=== PATIENT | male | born 1960 | race Caucasian/White ===

== ENCOUNTER 2018-05-12 10:06 | Inpatient (IN) | payer OTHER, MEDICAID ==
[2018-05-12] MEDS ORDERED: MEPERIDINE 50 MG INJ IV (12:00)
[2018-05-12] MEDS ORDERED: METHYLPREDNISOLONE 125 MG INJ IV (12:00)
[2018-05-12] MEDS ORDERED: DIPHENHYDRAMINE 50 MG INJ IV (12:00)
[2018-05-12 13:23] LABS: ADD MAN DIFF? NO
[2018-05-12 13:26] LABS: BASOPHILS % 0.6 % (0.0-2.0); EOSINOPHILS # 0.1 10^3/ul (0.0-0.5); EOSINOPHILS % 1.2 % (0.0-7.0); HEMOGLOBIN 7.5 g/dl (14.0-18.0); LYMPHOCYTES # 0.8 10^3/ul (0.8-2.9); LYMPHOCYTES % 16.8 % (15.0-51.0); MEAN CORPUSCULAR HGB CONC 31.3 g/dl (32.0-37.0); MEAN CORPUSCULAR VOLUME 92.7 fl (82.0-101.0); MEAN PLATELET VOLUME 9.8 fl (7.4-10.4); MONOCYTE # 0.5 10^3/ul (0.3-0.9); MONOCYTES % 10.5 % (0.0-11.0); NEUTROPHIL # 3.4 10^3/ul (1.6-7.5); NEUTROPHILS % 70.1 % (39.0-77.0); PLATELET COUNT 315 10^3/UL (140-415); RED BLOOD COUNT 2.59 10^6/ul (4.70-6.10); RED CELL DISTRIBUTION WIDTH 19.1 % (11.5-14.5)
[2018-05-12 13:26] LABS: WHITE BLOOD COUNT 4.9 10^3/ul (4.8-10.8)
[2018-05-12 13:49] LABS: ALANINE AMINOTRANSFERASE 22 IU/L (13-69); ALBUMIN 3.3 g/dl (3.3-4.9); ALBUMIN/GLOBULIN RATIO 1.65; ALKALINE PHOSPHATASE 118 IU/L (42-121); ANION GAP 11 (5-13); ASPARTATE AMINO TRANSFERASE 22 IU/L (15-46); BILIRUBIN,INDIRECT 0.2 mg/dl (0-1.1); BILIRUBIN,TOTAL 0.2 mg/dl (0.2-1.3); BLOOD UREA NITROGEN 14 mg/dl (7-20); CALCIUM 8.5 mg/dl (8.4-10.2); CARBON DIOXIDE 28 mmol/L (21-31); CHLORIDE 100 mmol/L (97-110); CREATININE 0.53 mg/dl (0.61-1.24); Estimated GFR > 60 mL/min (>60); GLUCOSE 88 mg/dl (70-220); POTASSIUM 4.2 mmol/L (3.5-5.1); SODIUM 139 mmol/L (135-144); TOTAL PROTEIN 5.3 g/dl (6.1-8.1); URIC ACID 4.5 mg/dl (3.1-7.9)
[2018-05-12 13:49] LABS: LACTATE DEHYDROGENASE 1661 IU/L (313-618)
[2018-05-12] MEDS ORDERED: GLUCAGON 1 MG INJ IM (14:30)
[2018-05-12] MEDS ORDERED: DEXTROSE 50% 50 ML SYRINGE IV ×2 (14:30)
[2018-05-12] MEDS ORDERED: GLUCOSE GEL 15 GRAM TUBE PO ×2 (14:30)
[2018-05-12] MEDS ORDERED: GLUCOSE GEL 15 GRAM TUBE BUCCAL (14:30)
[2018-05-12] MEDS: SOD CHLORIDE 0.9% 1,000 ML IV ×2 (14:37→22:34)
[2018-05-12] MEDS: ONDANSETRON INJ 16 MG, DEXAMETHASONE 4 MG/ML 10 MG in SOD CHLORIDE 0.9% 50 ML IV (17:48)
[2018-05-12] MEDS: metFORMIN 500 MG TAB PO ×2 (17:55→18:13)
[2018-05-12] MEDS: ACCU-CHEK XX ×2 (18:07→21:00)
[2018-05-12] MEDS: DIPHENHYDRAMINE 50 MG INJ IV (18:12)
[2018-05-12] MEDS: RITUXIMAB IV (18:24)
[2018-05-12] MEDS: SOD CHLORIDE 0.9% IV (18:24)
[2018-05-12] MEDS: ATORVASTATIN 20 MG TAB PO (20:42)
[2018-05-12] MEDS: TAMSULOSIN (SR) 0.4 MG CAP PO (20:42)
[2018-05-12] MEDS: INSULIN ASPART [NOVOLOG] 3 ML PEN SC (22:38)
[2018-05-13] MEDS: ACCU-CHEK XX (02:08)
[2018-05-13] MEDS: DIPHENHYDRAMINE 50 MG INJ IV ×2 (02:38→16:46)
[2018-05-13] MEDS: ACETAMINOPHEN 325 MG TAB PO (02:38)
[2018-05-13] MEDS: SOD CHLORIDE 0.9% 250 ML IV* (02:39)
[2018-05-13 02:48] LABS: IMMEDIATE SPIN CROSSMATCH 1 2
[2018-05-13] MEDS: predniSONE 50 MG TAB PO ×2 (08:28→21:33)
[2018-05-13] MEDS: INSULIN ASPART [NOVOLOG] 3 ML PEN SC ×4 (08:29→21:31)
[2018-05-13] MEDS: SOD CHLORIDE 0.9% IT (09:00)
[2018-05-13] MEDS: HYDROCORTISONE IT (09:00)
[2018-05-13] MEDS: METHOTREXATE IT (09:00)
[2018-05-13] MEDS: LIDOCAINE 1% (MPF) 5 ML VIAL (09:33)
[2018-05-13] MEDS: SOD CHLORIDE 0.9% 1,000 ML IV ×3 (10:43→21:35)
[2018-05-13 15:34] LABS: ADD MAN DIFF? NO
[2018-05-13 15:36] LABS: WHITE BLOOD COUNT 9.2 10^3/ul (4.8-10.8)
[2018-05-13 15:36] LABS: ABNORMAL IP MESSAGE 1; HEMATOCRIT 34.7 % (42.0-52.0); HEMOGLOBIN 11.3 g/dl (14.0-18.0); LYMPHOCYTES # 0.3 10^3/ul (0.8-2.9); MEAN CORPUSCULAR HGB CONC 32.6 g/dl (32.0-37.0); MEAN PLATELET VOLUME 9.5 fl (7.4-10.4); MONOCYTE # 0.1 10^3/ul (0.3-0.9); MONOCYTES % 1.1 % (0.0-11.0); NEUTROPHIL # 8.8 10^3/ul (1.6-7.5); NEUTROPHILS % 95.5 % (39.0-77.0); PLATELET COUNT 354 10^3/UL (140-415); POSITIVE DIFF @See below; RED CELL DISTRIBUTION WIDTH 17.2 % (11.5-14.5)
[2018-05-13 16:00] LABS: HEMOGLOBIN A1C 6.1 % (0-5.9)
[2018-05-13] MEDS ORDERED: predniSONE 50 MG TAB PO (16:00)
[2018-05-13] MEDS: ONDANSETRON INJ 16 MG, DEXAMETHASONE 4 MG/ML 10 MG in SOD CHLORIDE 0.9% 50 ML IV (16:46)
[2018-05-13] MEDS: SOD CHLORIDE IV (17:27)
[2018-05-13] MEDS: DOXORUBICIN IV (17:27)
[2018-05-13] MEDS: ETOPOSIDE IV (17:27)
[2018-05-13] MEDS: VINCRISTINE IV (17:27)
[2018-05-13] MEDS: TAMSULOSIN (SR) 0.4 MG CAP PO (21:28)
[2018-05-13] MEDS: ATORVASTATIN 20 MG TAB PO (21:28)
[2018-05-14] MEDS: ACCU-CHEK XX (02:50)
[2018-05-14 05:15] LABS: ADD MAN DIFF? NO
[2018-05-14 05:21] LABS: WHITE BLOOD COUNT 8.3 10^3/ul (4.8-10.8)
[2018-05-14 05:21] LABS: ABNORMAL IP MESSAGE 1; BASOPHILS % 0.1 % (0.0-2.0); HEMATOCRIT 32.3 % (42.0-52.0); HEMOGLOBIN 10.8 g/dl (14.0-18.0); LYMPHOCYTES # 0.3 10^3/ul (0.8-2.9); LYMPHOCYTES % 3.6 % (15.0-51.0); MEAN CORPUSCULAR HGB CONC 33.4 g/dl (32.0-37.0); MEAN CORPUSCULAR VOLUME 86.8 fl (82.0-101.0); MEAN PLATELET VOLUME 10.1 fl (7.4-10.4); MONOCYTE # 0.1 10^3/ul (0.3-0.9); MONOCYTES % 1.6 % (0.0-11.0); NEUTROPHIL # 7.8 10^3/ul (1.6-7.5); NEUTROPHILS % 94.1 % (39.0-77.0); PLATELET COUNT 339 10^3/UL (140-415); POSITIVE DIFF @See below; RED BLOOD COUNT 3.72 10^6/ul (4.70-6.10); RED CELL DISTRIBUTION WIDTH 17.1 % (11.5-14.5)
[2018-05-14 05:46] LABS: ALANINE AMINOTRANSFERASE 19 IU/L (13-69); ALBUMIN 3.2 g/dl (3.3-4.9); ALBUMIN/GLOBULIN RATIO 1.52; ALKALINE PHOSPHATASE 114 IU/L (42-121); ANION GAP 9 (5-13); ASPARTATE AMINO TRANSFERASE 17 IU/L (15-46); BILIRUBIN,INDIRECT 0.4 mg/dl (0-1.1); BILIRUBIN,TOTAL 0.4 mg/dl (0.2-1.3); BLOOD UREA NITROGEN 12 mg/dl (7-20); CALCIUM 8.5 mg/dl (8.4-10.2); CARBON DIOXIDE 27 mmol/L (21-31); CHLORIDE 103 mmol/L (97-110); CREATININE 0.44 mg/dl (0.61-1.24); Estimated GFR > 60 mL/min (>60); GLUCOSE 235 mg/dl (70-220); LACTATE DEHYDROGENASE 1953 IU/L (313-618); POTASSIUM 3.5 mmol/L (3.5-5.1); SODIUM 139 mmol/L (135-144); TOTAL PROTEIN 5.3 g/dl (6.1-8.1); URIC ACID 3.2 mg/dl (3.1-7.9)
[2018-05-14 06:06] LABS: CHOLESTEROL 132 mg/dl (100-200)
[2018-05-14 06:06] LABS: CHOL/HDL RATIO 2.1 RATIO; HDL CHOLESTEROL 62 mg/dl (28-71); LDL CHOLESTEROL,CALCULATED 59 mg/dl; TRIGLYCERIDES 54 mg/dl (0-149)
[2018-05-14 06:21] LABS: T4 (THYROXINE) 7.1 ug/dl (5.5-11.0)
[2018-05-14 06:34] LABS: THYROID STIMULATING HORMONE 0.329 MIU/L (0.465-4.680)
[2018-05-14] MEDS: SOD CHLORIDE 0.9% 1,000 ML IV ×2 (06:51→16:59)
[2018-05-14] MEDS: predniSONE 50 MG TAB PO ×2 (08:32→20:42)
[2018-05-14] MEDS: INSULIN ASPART [NOVOLOG] 3 ML PEN SC ×4 (08:33→20:48)
[2018-05-14] MEDS ORDERED: hydrALAzine 20 MG INJ IV (11:30)
[2018-05-14] MEDS: DIPHENHYDRAMINE 50 MG INJ IV (18:34)
[2018-05-14] MEDS: ONDANSETRON INJ 16 MG, DEXAMETHASONE 4 MG/ML 10 MG in SOD CHLORIDE 0.9% 50 ML IV (18:35)
[2018-05-14] MEDS: VINCRISTINE IV (19:07)
[2018-05-14] MEDS: SOD CHLORIDE IV (19:07)
[2018-05-14] MEDS: ETOPOSIDE IV (19:07)
[2018-05-14] MEDS: DOXORUBICIN IV (19:07)
[2018-05-14] MEDS: ATORVASTATIN 20 MG TAB PO (20:42)
[2018-05-14] MEDS: TAMSULOSIN (SR) 0.4 MG CAP PO (20:42)
[2018-05-15] MEDS: ACCU-CHEK XX (01:34)
[2018-05-15] MEDS: SOD CHLORIDE 0.9% 1,000 ML IV ×2 (02:06→14:10)
[2018-05-15 05:07] LABS: ADD MAN DIFF? NO
[2018-05-15 05:14] LABS: ABNORMAL IP MESSAGE 1; HEMATOCRIT 33.3 % (42.0-52.0); HEMOGLOBIN 11.1 g/dl (14.0-18.0); LYMPHOCYTES # 0.2 10^3/ul (0.8-2.9); LYMPHOCYTES % 2.5 % (15.0-51.0); MEAN CORPUSCULAR HEMOGLOBIN 29.3 pg (29.0-33.0); MEAN CORPUSCULAR HGB CONC 33.3 g/dl (32.0-37.0); MEAN CORPUSCULAR VOLUME 87.9 fl (82.0-101.0); MEAN PLATELET VOLUME 9.9 fl (7.4-10.4); MONOCYTE # 0.2 10^3/ul (0.3-0.9); MONOCYTES % 2.6 % (0.0-11.0); NEUTROPHIL # 8.6 10^3/ul (1.6-7.5); NEUTROPHILS % 94.2 % (39.0-77.0); PLATELET COUNT 348 10^3/UL (140-415); POSITIVE DIFF @See below; RED BLOOD COUNT 3.79 10^6/ul (4.70-6.10); RED CELL DISTRIBUTION WIDTH 16.9 % (11.5-14.5)
[2018-05-15 05:14] LABS: WHITE BLOOD COUNT 9.1 10^3/ul (4.8-10.8)
[2018-05-15 05:32] LABS: ALANINE AMINOTRANSFERASE 23 IU/L (13-69); ALBUMIN 3.2 g/dl (3.3-4.9); ALBUMIN/GLOBULIN RATIO 1.23; ALKALINE PHOSPHATASE 111 IU/L (42-121); ANION GAP 9 (5-13); ASPARTATE AMINO TRANSFERASE 18 IU/L (15-46); BILIRUBIN,INDIRECT 0.6 mg/dl (0-1.1); BILIRUBIN,TOTAL 0.6 mg/dl (0.2-1.3); BLOOD UREA NITROGEN 13 mg/dl (7-20); CALCIUM 8.5 mg/dl (8.4-10.2); CARBON DIOXIDE 29 mmol/L (21-31); CHLORIDE 99 mmol/L (97-110); CREATININE 0.42 mg/dl (0.61-1.24); Estimated GFR > 60 mL/min (>60); GLUCOSE 242 mg/dl (70-220); LACTATE DEHYDROGENASE 1849 IU/L (313-618); POTASSIUM 3.3 mmol/L (3.5-5.1); SODIUM 137 mmol/L (135-144); TOTAL PROTEIN 5.8 g/dl (6.1-8.1); URIC ACID 3.6 mg/dl (3.1-7.9)
[2018-05-15] MEDS: predniSONE 50 MG TAB PO ×2 (08:23→20:10)
[2018-05-15] MEDS: INSULIN ASPART [NOVOLOG] 3 ML PEN SC ×5 (08:24→22:07)
[2018-05-15] MEDS: POTASSIUM CHLORIDE (SR) 20 MEQ TAB PO (13:56)
[2018-05-15] MEDS: TAMSULOSIN (SR) 0.4 MG CAP PO (20:09)
[2018-05-15] MEDS: ATORVASTATIN 20 MG TAB PO (20:09)
[2018-05-15] MEDS: ONDANSETRON INJ 16 MG, DEXAMETHASONE 4 MG/ML 10 MG in SOD CHLORIDE 0.9% 50 ML IV (20:43)
[2018-05-15] MEDS: DIPHENHYDRAMINE 50 MG INJ IV (20:43)
[2018-05-15] MEDS: DOXORUBICIN IV (21:24)
[2018-05-15] MEDS: SOD CHLORIDE IV (21:24)
[2018-05-15] MEDS: VINCRISTINE IV (21:24)
[2018-05-15] MEDS: ETOPOSIDE IV (21:24)
[2018-05-15] MEDS: INSULIN GLARGINE [LANTus] (100 UNITS/ML) SYG SC (21:56)
[2018-05-16] MEDS: ACCU-CHEK XX (02:00)
[2018-05-16 05:10] LABS: ADD MAN DIFF? NO
[2018-05-16 05:13] LABS: ABNORMAL IP MESSAGE 1; HEMATOCRIT 33.7 % (42.0-52.0); HEMOGLOBIN 11.3 g/dl (14.0-18.0); LYMPHOCYTES # 0.2 10^3/ul (0.8-2.9); LYMPHOCYTES % 3.7 % (15.0-51.0); MEAN CORPUSCULAR HEMOGLOBIN 28.8 pg (29.0-33.0); MEAN CORPUSCULAR HGB CONC 33.5 g/dl (32.0-37.0); MEAN PLATELET VOLUME 9.8 fl (7.4-10.4); MONOCYTE # 0.1 10^3/ul (0.3-0.9); MONOCYTES % 2.1 % (0.0-11.0); NEUTROPHIL # 5.8 10^3/ul (1.6-7.5); PLATELET COUNT 343 10^3/UL (140-415); POSITIVE DIFF @See below; RED BLOOD COUNT 3.92 10^6/ul (4.70-6.10)
[2018-05-16 05:13] LABS: WHITE BLOOD COUNT 6.2 10^3/ul (4.8-10.8)
[2018-05-16 05:22] LABS: NEUTROPHILS % 93.7 % (39.0-77.0)
[2018-05-16 05:33] LABS: ALANINE AMINOTRANSFERASE 28 IU/L (13-69); ALBUMIN 3.2 g/dl (3.3-4.9); ALBUMIN/GLOBULIN RATIO 1.52; ALKALINE PHOSPHATASE 94 IU/L (42-121); ANION GAP 7 (5-13); ASPARTATE AMINO TRANSFERASE 18 IU/L (15-46); BILIRUBIN,INDIRECT 0.6 mg/dl (0-1.1); BILIRUBIN,TOTAL 0.6 mg/dl (0.2-1.3); BLOOD UREA NITROGEN 14 mg/dl (7-20); CALCIUM 8.4 mg/dl (8.4-10.2); CARBON DIOXIDE 31 mmol/L (21-31); CHLORIDE 101 mmol/L (97-110); CREATININE 0.42 mg/dl (0.61-1.24); Estimated GFR > 60 mL/min (>60); GLUCOSE 191 mg/dl (70-220); LACTATE DEHYDROGENASE 1605 IU/L (313-618); POTASSIUM 3.4 mmol/L (3.5-5.1); SODIUM 139 mmol/L (135-144); TOTAL PROTEIN 5.3 g/dl (6.1-8.1); URIC ACID 3.5 mg/dl (3.1-7.9)
[2018-05-16] MEDS: SOD CHLORIDE 0.9% 1,000 ML IV ×2 (06:23→16:52)
[2018-05-16] MEDS: INSULIN ASPART [NOVOLOG] 3 ML PEN SC ×7 (08:55→21:00)
[2018-05-16] MEDS: predniSONE 50 MG TAB PO ×2 (08:55→20:57)
[2018-05-16] MEDS: POTASSIUM CHLORIDE 100 ML IVPB ×2 (13:00→14:17)
[2018-05-16] MEDS: POTASSIUM CHLORIDE (SR) 20 MEQ TAB PO (14:42)
[2018-05-16] MEDS: TAMSULOSIN (SR) 0.4 MG CAP PO (20:56)
[2018-05-16] MEDS: ATORVASTATIN 20 MG TAB PO (20:57)
[2018-05-16] MEDS: INSULIN GLARGINE [LANTus] (100 UNITS/ML) SYG SC (20:59)
[2018-05-16] MEDS: ONDANSETRON INJ 16 MG, DEXAMETHASONE 4 MG/ML 10 MG in SOD CHLORIDE 0.9% 50 ML IV (21:35)
[2018-05-16] MEDS: DIPHENHYDRAMINE 50 MG INJ IV (21:37)
[2018-05-16] MEDS: DOXORUBICIN IV (22:12)
[2018-05-16] MEDS: VINCRISTINE IV (22:12)
[2018-05-16] MEDS: SOD CHLORIDE IV (22:12)
[2018-05-16] MEDS: ETOPOSIDE IV (22:12)
[2018-05-17] MEDS: ACCU-CHEK XX (02:55)
[2018-05-17] MEDS: SOD CHLORIDE 0.9% 1,000 ML IV ×3 (03:06→22:54)
[2018-05-17 05:34] LABS: ADD MAN DIFF? NO
[2018-05-17 05:37] LABS: WHITE BLOOD COUNT 4.8 10^3/ul (4.8-10.8)
[2018-05-17 05:37] LABS: ABNORMAL IP MESSAGE 1; HEMATOCRIT 32.6 % (42.0-52.0); HEMOGLOBIN 11.2 g/dl (14.0-18.0); LYMPHOCYTES # 0.2 10^3/ul (0.8-2.9); LYMPHOCYTES % 4.4 % (15.0-51.0); MEAN CORPUSCULAR HEMOGLOBIN 29.1 pg (29.0-33.0); MEAN CORPUSCULAR HGB CONC 34.4 g/dl (32.0-37.0); MEAN CORPUSCULAR VOLUME 84.7 fl (82.0-101.0); MEAN PLATELET VOLUME 9.6 fl (7.4-10.4); MONOCYTE # 0.1 10^3/ul (0.3-0.9); NEUTROPHIL # 4.5 10^3/ul (1.6-7.5); NEUTROPHILS % 94.4 % (39.0-77.0); PLATELET COUNT 325 10^3/UL (140-415); POSITIVE DIFF @See below; RED BLOOD COUNT 3.85 10^6/ul (4.70-6.10); RED CELL DISTRIBUTION WIDTH 16.1 % (11.5-14.5)
[2018-05-17 06:32] LABS: ALANINE AMINOTRANSFERASE 16 IU/L (13-69); ALBUMIN 2.9 g/dl (3.3-4.9); ALKALINE PHOSPHATASE 87 IU/L (42-121); ANION GAP 7 (5-13); ASPARTATE AMINO TRANSFERASE 17 IU/L (15-46); BLOOD UREA NITROGEN 15 mg/dl (7-20); CALCIUM 8.5 mg/dl (8.4-10.2); CARBON DIOXIDE 29 mmol/L (21-31); CHLORIDE 101 mmol/L (97-110); CREATININE 0.39 mg/dl (0.61-1.24); Estimated GFR > 60 mL/min (>60); GLUCOSE 167 mg/dl (70-220); LACTATE DEHYDROGENASE 1589 IU/L (313-618); POTASSIUM 3.7 mmol/L (3.5-5.1); SODIUM 137 mmol/L (135-144); TOTAL PROTEIN 5.3 g/dl (6.1-8.1); URIC ACID 3.3 mg/dl (3.1-7.9)
[2018-05-17] MEDS: INSULIN ASPART [NOVOLOG] 3 ML PEN SC ×7 (07:50→21:09)
[2018-05-17] MEDS: predniSONE 50 MG TAB PO ×2 (08:34→21:07)
[2018-05-17] MEDS: TAMSULOSIN (SR) 0.4 MG CAP PO (21:06)
[2018-05-17] MEDS: ATORVASTATIN 20 MG TAB PO (21:06)
[2018-05-17] MEDS: INSULIN GLARGINE [LANTus] (100 UNITS/ML) SYG SC (21:08)
[2018-05-17] MEDS: ONDANSETRON INJ 16 MG, DEXAMETHASONE 4 MG/ML 10 MG in SOD CHLORIDE 0.9% 50 ML IV (23:01)
[2018-05-17] MEDS: CYCLOPHOSPHAMIDE IV (23:25)
[2018-05-17] MEDS: SOD CHLORIDE 0.9% IV (23:25)
[2018-05-17] MEDS: MAGNESIUM HYDROXIDE 30ML CUP PO (23:49)
[2018-05-17] MEDS: SENNA TAB PO (23:49)
[2018-05-18] MEDS: ACCU-CHEK XX (02:01)
[2018-05-18 05:05] LABS: ADD MAN DIFF? NO
[2018-05-18 05:09] LABS: WHITE BLOOD COUNT 4.2 10^3/ul (4.8-10.8)
[2018-05-18 05:09] LABS: ABNORMAL IP MESSAGE 1; HEMATOCRIT 30.8 % (42.0-52.0); HEMOGLOBIN 10.8 g/dl (14.0-18.0); LYMPHOCYTES # 0.2 10^3/ul (0.8-2.9); MEAN CORPUSCULAR HEMOGLOBIN 29.5 pg (29.0-33.0); MEAN CORPUSCULAR HGB CONC 35.1 g/dl (32.0-37.0); MEAN CORPUSCULAR VOLUME 84.2 fl (82.0-101.0); MEAN PLATELET VOLUME 9.5 fl (7.4-10.4); MONOCYTES % 0.7 % (0.0-11.0); NEUTROPHILS % 94.1 % (39.0-77.0); PLATELET COUNT 289 10^3/UL (140-415); POSITIVE DIFF @See below; RED BLOOD COUNT 3.66 10^6/ul (4.70-6.10); RED CELL DISTRIBUTION WIDTH 15.7 % (11.5-14.5)
[2018-05-18 05:42] LABS: ALANINE AMINOTRANSFERASE 23 IU/L (13-69); ALBUMIN 2.9 g/dl (3.3-4.9); ALBUMIN/GLOBULIN RATIO 1.61; ALKALINE PHOSPHATASE 83 IU/L (42-121); ANION GAP 9 (5-13); ASPARTATE AMINO TRANSFERASE 19 IU/L (15-46); BLOOD UREA NITROGEN 16 mg/dl (7-20); CALCIUM 8.4 mg/dl (8.4-10.2); CARBON DIOXIDE 29 mmol/L (21-31); CHLORIDE 95 mmol/L (97-110); CREATININE 0.38 mg/dl (0.61-1.24); Estimated GFR > 60 mL/min (>60); GLUCOSE 127 mg/dl (70-220); LACTATE DEHYDROGENASE 1830 IU/L (313-618); POTASSIUM 3.3 mmol/L (3.5-5.1); SODIUM 133 mmol/L (135-144); TOTAL PROTEIN 4.7 g/dl (6.1-8.1); URIC ACID 2.6 mg/dl (3.1-7.9)
[2018-05-18] MEDS: INSULIN ASPART [NOVOLOG] 3 ML PEN SC ×4 (07:50→12:47)
[2018-05-18] MEDS: SENNA TAB PO (08:51)
[2018-05-18] MEDS: MAGNESIUM HYDROXIDE 30ML CUP PO (08:52)
[2018-05-18] MEDS: POTASSIUM CHLORIDE 20 MEQ POWDER FOR ORAL SOLN PO (09:56)
[2018-05-18] MEDS: SOD CHLORIDE 0.9% 1,000 ML IV (09:56)
[2018-05-18] MEDS: FILGRASTIM 480 MCG INJ SC (12:21)
[2018-05-18] MEDS: HEPARIN (100 UNITS/ML) 5 ML SYG CATHETER (12:39)
== END 2018-05-18 13:45 | disposition home or self-care (01) | DRG 847 ==
LOC: MS1 10:06
PROC: 3E04305 Introduction of Other Antineoplastic into Central Vein, Percutaneous Approach (ICD-10-PCS; 2018-05-12)
PROC: 3E0R305 Introduction of Other Antineoplastic into Spinal Canal, Percutaneous Approach (ICD-10-PCS; principal; 2018-05-13)
PROC: 3E0R33Z Introduction of Anti-inflammatory into Spinal Canal, Percutaneous Approach (ICD-10-PCS; 2018-05-13)
PROC: 30233N1 Transfusion of Nonautologous Red Blood Cells into Peripheral Vein, Percutaneous Approach (ICD-10-PCS; 2018-05-13)
DX: Z51.11 Encounter for antineoplastic chemotherapy (principal); C83.38 Diffuse large B-cell lymphoma, lymph nodes of multiple sites; E11.9 Type 2 diabetes mellitus without complications; I10 Essential (primary) hypertension; E78.00 Pure hypercholesterolemia, unspecified; D64.81 Anemia due to antineoplastic chemotherapy; N40.0 Benign prostatic hyperplasia without lower urinary tract symptoms
CPT/HCPCS: 36430; 80053; 80061; 82962; 83036; 83615; 84436; 84443; 84560; 85025; 86644; 86850; 86900; 86901; 86920; 86945; 96450; J9181; J9310

== ENCOUNTER 2018-06-08 10:25 | Inpatient (IN) | payer MEDICAID ==
[2018-06-08] MEDS ORDERED: HYDROCODONE/APAP (10/325) TAB PO (11:00)
[2018-06-08 11:55] LABS: WHITE BLOOD COUNT 13.5 10^3/ul (4.8-10.8)
[2018-06-08 11:55] LABS: ABNORMAL IP MESSAGE 1; HEMATOCRIT 30.6 % (42.0-52.0); HEMOGLOBIN 10.2 g/dl (14.0-18.0); MEAN CORPUSCULAR HEMOGLOBIN 29.2 pg (29.0-33.0); MEAN CORPUSCULAR HGB CONC 33.3 g/dl (32.0-37.0); MEAN CORPUSCULAR VOLUME 87.7 fl (82.0-101.0); MEAN PLATELET VOLUME 9.7 fl (7.4-10.4); NUCLEATED RED BLOOD CELLS% 0.2 /100WBC (0.0-0.0); PLATELET COUNT 302 10^3/UL (140-415); POSITIVE DIFF @See below; RED BLOOD COUNT 3.49 10^6/ul (4.70-6.10)
[2018-06-08] MEDS: HYDROCODONE/APAP (5/325) TAB PO (11:57)
[2018-06-08] MEDS: SOD CHLORIDE 0.9% 1,000 ML IV ×2 (11:58→21:00)
[2018-06-08] MEDS ORDERED: NACL 0.9% 3 ML SYG IV (12:00)
[2018-06-08] MEDS ORDERED: ZOLPIDEM 5 MG TAB PO (12:00)
[2018-06-08] MEDS ORDERED: ACETAMINOPHEN 325 MG TAB PO (12:00)
[2018-06-08 12:02] LABS: ADD MAN DIFF? YES
[2018-06-08 12:38] LABS: ALANINE AMINOTRANSFERASE 27 IU/L (13-69); ALBUMIN/GLOBULIN RATIO 1.25; ALKALINE PHOSPHATASE 74 IU/L (42-121); ANION GAP 10 (5-13); ASPARTATE AMINO TRANSFERASE 127 IU/L (15-46); BILIRUBIN,INDIRECT 0.4 mg/dl (0-1.1); BILIRUBIN,TOTAL 0.4 mg/dl (0.2-1.3); BLOOD UREA NITROGEN 13 mg/dl (7-20); CALCIUM 8.6 mg/dl (8.4-10.2); CARBON DIOXIDE 29 mmol/L (21-31); CHLORIDE 92 mmol/L (97-110); CREATININE 0.55 mg/dl (0.61-1.24); Estimated GFR > 60 mL/min (>60); GLUCOSE 101 mg/dl (70-220); POTASSIUM 4.1 mmol/L (3.5-5.1); SODIUM 131 mmol/L (135-144); TOTAL PROTEIN 5.4 g/dl (6.1-8.1); URIC ACID 6.4 mg/dl (3.1-7.9)
[2018-06-08 12:42] LABS: ANISOCYTOSIS 2+ (0-0); BAND NEUTROPHILS #M 0.8 10^3/ul (0.0-0.6); BAND NEUTROPHILS % (M) 6 % (0-4); BASOPHIL #M 0.1 10^3/ul (0.0-0.0); BASOPHILS % (M) 1 % (0-2); ERYTHROBLAST% (NRBC) (M) 1 % (0-0); LYMPHOCYTES #M 0.9 10^3/ul (0.8-2.9); LYMPHOCYTES % (M) 7 % (15-51); METAMYELOCYTES #M 0.1 10^3/ul (0.0-0.0); METAMYELOCYTES %M 1 % (0-0); MICROCYTOSIS 1+ (0-0); MONOCYTE #M 1.4 10^3/ul (0.3-0.9); MONOCYTES % (M) 11 % (0-11); PLATELET ESTIMATE NORMAL; POIKILOCYTOSIS 1+ (0-0); REACTIVE LYMPHOCYTES #M 0.4 10^3/ul (0.0-0.0); REACTIVE LYMPHOCYTES% (M) 3 % (0-0); SEG NEUT #M 9.7 10^3/ul (1.6-7.5); SEGMENTED NEUTROPHILS (M) % 71 % (39-77); SMUDGE%M 14 % (0-0)
[2018-06-08 13:07] LABS: LACTATE DEHYDROGENASE 10054 IU/L (313-618)
[2018-06-08] MEDS ORDERED: ONDANSETRON INJ 16 MG, DEXAMETHASONE 10 MG/ML 10 MG in SOD CHLORIDE 0.9% 50 ML IVPB (16:00)
[2018-06-08] MEDS ORDERED: DIPHENHYDRAMINE 50 MG INJ IV ×2 (16:00)
[2018-06-08] MEDS ORDERED: METHYLPREDNISOLONE 125 MG INJ IV (16:00)
[2018-06-08] MEDS ORDERED: MEPERIDINE 50 MG INJ IV (16:00)
[2018-06-08] MEDS ORDERED: SOD CHLORIDE 0.9% IV (16:30)
[2018-06-08] MEDS ORDERED: RITUXIMAB IV (16:30)
[2018-06-08] MEDS: TAMSULOSIN (SR) 0.4 MG CAP PO (21:03)
[2018-06-08] MEDS: ATORVASTATIN 20 MG TAB PO (21:04)
[2018-06-09 05:59] LABS: MAGNESIUM 1.4 mg/dl (1.7-2.5)
[2018-06-09 05:59] LABS: PHOSPHORUS 3.6 mg/dl (2.5-4.9)
[2018-06-09] MEDS: SOD CHLORIDE 0.9% 1,000 ML IV ×2 (06:05→17:00)
[2018-06-09] MEDS: morphine 2 MG INJ IV (08:57)
[2018-06-09] MEDS ORDERED: SOD CHLORIDE 0.9% IT (09:00)
[2018-06-09] MEDS ORDERED: HYDROCORTISONE IT (09:00)
[2018-06-09] MEDS ORDERED: METHOTREXATE IT (09:00)
[2018-06-09] MEDS: ENOXAPARIN 40 MG/0.4 ML SYG SC (09:00)
[2018-06-09] MEDS: HYDROCODONE/APAP (5/325) TAB PO ×2 (13:18→19:02)
[2018-06-09] MEDS ORDERED: DIPHENHYDRAMINE 50 MG INJ IV (15:30)
[2018-06-09] MEDS ORDERED: ONDANSETRON INJ 16 MG, DEXAMETHASONE 10 MG/ML 10 MG in SOD CHLORIDE 0.9% 50 ML IVPB (15:30)
[2018-06-09] MEDS ORDERED: DEXTROSE 50% 50 ML SYRINGE IV ×2 (19:00)
[2018-06-09] MEDS ORDERED: GLUCAGON 1 MG INJ IM (19:00)
[2018-06-09] MEDS ORDERED: GLUCOSE GEL 15 GRAM TUBE BUCCAL (19:00)
[2018-06-09] MEDS ORDERED: GLUCOSE GEL 15 GRAM TUBE PO ×2 (19:00)
[2018-06-09] MEDS: DOCUSATE SODIUM 100 MG CAP PO (20:22)
[2018-06-09] MEDS: ATORVASTATIN 20 MG TAB PO (20:22)
[2018-06-09] MEDS: TAMSULOSIN (SR) 0.4 MG CAP PO (20:22)
[2018-06-09] MEDS: INSULIN ASPART [NOVOLOG] 3 ML PEN SC (20:25)
[2018-06-10] MEDS ORDERED: LEVALBUTEROL (NEB) 0.63 MG/3 ML AMP HHN (01:30)
[2018-06-10] MEDS: SOD CHLORIDE 0.9% 1,000 ML IV (02:54)
[2018-06-10] MEDS: HYDROCODONE/APAP (5/325) TAB PO ×2 (05:31→20:57)
[2018-06-10] MEDS: INSULIN ASPART [NOVOLOG] 3 ML PEN SC ×4 (07:50→21:00)
[2018-06-10] MEDS: ENOXAPARIN 40 MG/0.4 ML SYG SC (08:52)
[2018-06-10 10:08] LABS: ABNORMAL IP MESSAGE 1; HEMATOCRIT 29.4 % (42.0-52.0); HEMOGLOBIN 9.7 g/dl (14.0-18.0); MEAN CORPUSCULAR HEMOGLOBIN 29.2 pg (29.0-33.0); MEAN CORPUSCULAR VOLUME 88.6 fl (82.0-101.0); MEAN PLATELET VOLUME 9.5 fl (7.4-10.4); NUCLEATED RED BLOOD CELLS% 0.5 /100WBC (0.0-0.0); PLATELET COUNT 260 10^3/UL (140-415); POSITIVE DIFF @See below; RED BLOOD COUNT 3.32 10^6/ul (4.70-6.10); RED CELL DISTRIBUTION WIDTH 18.3 % (11.5-14.5)
[2018-06-10 10:12] LABS: ADD MAN DIFF? YES
[2018-06-10 10:33] LABS: ALANINE AMINOTRANSFERASE 31 IU/L (13-69); ALBUMIN 2.9 g/dl (3.3-4.9); ALBUMIN/GLOBULIN RATIO 1.38; ALKALINE PHOSPHATASE 73 IU/L (42-121); ANION GAP 9 (5-13); ASPARTATE AMINO TRANSFERASE 181 IU/L (15-46); BILIRUBIN,INDIRECT 0.3 mg/dl (0-1.1); BILIRUBIN,TOTAL 0.3 mg/dl (0.2-1.3); BLOOD UREA NITROGEN 20 mg/dl (7-20); CALCIUM 8.4 mg/dl (8.4-10.2); CARBON DIOXIDE 31 mmol/L (21-31); CHLORIDE 92 mmol/L (97-110); CREATININE 0.58 mg/dl (0.61-1.24); Estimated GFR > 60 mL/min (>60); GLUCOSE 88 mg/dl (70-220); POTASSIUM 4.4 mmol/L (3.5-5.1); SODIUM 132 mmol/L (135-144); URIC ACID 7.5 mg/dl (3.1-7.9)
[2018-06-10 11:28] LABS: ANISOCYTOSIS 1+ (0-0); BAND NEUTROPHILS #M 1.8 10^3/ul (0.0-0.6); BAND NEUTROPHILS % (M) 10 % (0-4); EOSINOPHILS % (M) 1 % (0-7); ERYTHROBLAST% (NRBC) (M) 1 % (0-0); LYMPHOCYTES #M 1.8 10^3/ul (0.8-2.9); LYMPHOCYTES % (M) 10 % (15-51); METAMYELOCYTES #M 0.5 10^3/ul (0.0-0.0); METAMYELOCYTES %M 3 % (0-0); MICROCYTOSIS 1+ (0-0); MONOCYTE #M 2.7 10^3/ul (0.3-0.9); MONOCYTES % (M) 15 % (0-11); PLATELET ESTIMATE NORMAL; POIKILOCYTOSIS 2+ (0-0); POLYCHROMASIA 1+ (0-0); REACTIVE LYMPHOCYTES #M 0.3 10^3/ul (0.0-0.0); REACTIVE LYMPHOCYTES% (M) 2 % (0-0); SEG NEUT #M 10.9 10^3/ul (1.6-7.5); SEGMENTED NEUTROPHILS (M) % 59 % (39-77); SMUDGE%M 6 % (0-0)
[2018-06-10 11:37] LABS: LACTATE DEHYDROGENASE 19664 IU/L (313-618)
[2018-06-10 12:09] LABS: MAGNESIUM 1.5 mg/dl (1.7-2.5); PHOSPHORUS 5.3 mg/dl (2.5-4.9)
[2018-06-10] MEDS: MAGNESIUM SULFATE 3 GM in DEXTROSE 5% 100 ML IVPB (18:19)
[2018-06-10] MEDS: ATORVASTATIN 20 MG TAB PO (20:57)
[2018-06-10] MEDS: TAMSULOSIN (SR) 0.4 MG CAP PO (20:57)
[2018-06-11] MEDS: PANTOPRAZOLE (EC) 40 MG TAB PO (05:15)
[2018-06-11] MEDS: INSULIN ASPART [NOVOLOG] 3 ML PEN SC ×4 (07:50→21:00)
[2018-06-11] MEDS: HYDROCODONE/APAP (5/325) TAB PO (08:21)
[2018-06-11] MEDS: DOCUSATE SODIUM 100 MG CAP PO (09:28)
[2018-06-11] MEDS: ENOXAPARIN 40 MG/0.4 ML SYG SC (09:28)
[2018-06-11] MEDS: ONDANSETRON 4 MG INJ IV (14:37)
[2018-06-11] MEDS: ATORVASTATIN 20 MG TAB PO (21:31)
[2018-06-11] MEDS: TAMSULOSIN (SR) 0.4 MG CAP PO (21:31)
[2018-06-12] MEDS: PANTOPRAZOLE (EC) 40 MG TAB PO (06:23)
[2018-06-12] MEDS: INSULIN ASPART [NOVOLOG] 3 ML PEN SC ×5 (07:50→20:52)
[2018-06-12] MEDS: ENOXAPARIN 40 MG/0.4 ML SYG SC (08:47)
[2018-06-12 10:31] LABS: ADD MAN DIFF? NO
[2018-06-12 10:37] LABS: ABNORMAL IP MESSAGE 1; BASOPHIL # 0.1 10^3/ul (0.0-0.1); BASOPHILS % 0.6 % (0.0-2.0); EOSINOPHILS # 0.2 10^3/ul (0.0-0.5); EOSINOPHILS % 1.2 % (0.0-7.0); HEMATOCRIT 28.4 % (42.0-52.0); HEMOGLOBIN 9.2 g/dl (14.0-18.0); LYMPHOCYTES # 2.9 10^3/ul (0.8-2.9); LYMPHOCYTES % 14.9 % (15.0-51.0); MEAN CORPUSCULAR HEMOGLOBIN 28.7 pg (29.0-33.0); MEAN CORPUSCULAR HGB CONC 32.4 g/dl (32.0-37.0); MEAN CORPUSCULAR VOLUME 88.5 fl (82.0-101.0); MEAN PLATELET VOLUME 9.6 fl (7.4-10.4); MONOCYTE # 2.5 10^3/ul (0.3-0.9); MONOCYTES % 12.5 % (0.0-11.0); NEUTROPHIL # 11.4 10^3/ul (1.6-7.5); NEUTROPHILS % 58.2 % (39.0-77.0); NUCLEATED RED BLOOD CELLS # 0.1 10^3/ul (0.0-0.0); NUCLEATED RED BLOOD CELLS% 0.5 /100WBC (0.0-0.0); PLATELET COUNT 211 10^3/UL (140-415); POSITIVE DIFF @See below; RED BLOOD COUNT 3.21 10^6/ul (4.70-6.10); RED CELL DISTRIBUTION WIDTH 18.5 % (11.5-14.5)
[2018-06-12 10:37] LABS: WHITE BLOOD COUNT 19.5 10^3/ul (4.8-10.8)
[2018-06-12 10:54] LABS: ANION GAP 13 (5-13); BLOOD UREA NITROGEN 24 mg/dl (7-20); CALCIUM 8.5 mg/dl (8.4-10.2); CARBON DIOXIDE 27 mmol/L (21-31); CHLORIDE 90 mmol/L (97-110); CREATININE 0.59 mg/dl (0.61-1.24); Estimated GFR > 60 mL/min (>60); GLUCOSE 166 mg/dl (70-220); POTASSIUM 4.4 mmol/L (3.5-5.1); SODIUM 130 mmol/L (135-144)
[2018-06-12 11:23] LABS: ANISOCYTOSIS 1+ (0-0); BAND NEUTROPHILS #M 2.3 10^3/ul (0.0-0.6); BAND NEUTROPHILS % (M) 12 % (0-4); BURR CELLS 1+ (0-0); EOSINOPHILS % (M) 1 % (0-7); LYMPHOCYTES #M 0.7 10^3/ul (0.8-2.9); LYMPHOCYTES % (M) 4 % (15-51); METAMYELOCYTES #M 0.1 10^3/ul (0.0-0.0); METAMYELOCYTES %M 1 % (0-0); MICROCYTOSIS 1+ (0-0); MONOCYTE #M 3.7 10^3/ul (0.3-0.9); MONOCYTES % (M) 19 % (0-11); MYELOCYTES #M 0.5 10^3/ul (0.0-0.0); MYELOCYTES % (M) 3 % (0-0); OVALOCYTES 1+ (0-0); PLATELET ESTIMATE NORMAL; POIKILOCYTOSIS 1+ (0-0); POLYCHROMASIA 1+ (0-0); PROMYELOCYTES #M 0.1 10^3/ul (0-0); PROMYELOCYTES % (M) 1 % (0-0); REACTIVE LYMPHOCYTES #M 0.1 10^3/ul (0.0-0.0); REACTIVE LYMPHOCYTES% (M) 1 % (0-0); SEG NEUT #M 11.8 10^3/ul (1.6-7.5); SEGMENTED NEUTROPHILS (M) % 58 % (39-77); SMUDGE%M 22 % (0-0)
[2018-06-12] MEDS ORDERED: METHYLPREDNISOLONE 125 MG INJ IV (12:30)
[2018-06-12] MEDS ORDERED: DIPHENHYDRAMINE 50 MG INJ IV ×2 (12:30→15:30)
[2018-06-12] MEDS ORDERED: MEPERIDINE 50 MG INJ IV (12:30)
[2018-06-12] MEDS: ALLOPURINOL 100 MG TAB PO (12:36)
[2018-06-12] MEDS: SOD CHLORIDE 0.9% 1,000 ML IV (12:37)
[2018-06-12] MEDS ORDERED: ONDANSETRON INJ 16 MG, DEXAMETHASONE 4 MG/ML 10 MG in SOD CHLORIDE 0.9% 50 ML IV (15:30)
[2018-06-12] MEDS: morphine 2 MG INJ IV (15:35)
[2018-06-12] MEDS ORDERED: SOD CHLORIDE 0.9% IV (16:00)
[2018-06-12] MEDS ORDERED: RITUXIMAB IV (16:00)
[2018-06-12] MEDS: METHYLPREDNISOLONE 125 MG INJ IV (16:49)
[2018-06-12] MEDS: ATORVASTATIN 20 MG TAB PO (20:06)
[2018-06-12] MEDS: TAMSULOSIN (SR) 0.4 MG CAP PO (20:06)
[2018-06-12] MEDS: ENOXAPARIN 80 MG/0.8 ML SYG SC (20:10)
[2018-06-13] MEDS ORDERED: SOD CHLORIDE 0.9% IV ×4 (05:00→22:00)
[2018-06-13] MEDS ORDERED: ETOPOSIDE IV ×2 (05:00→22:00)
[2018-06-13] MEDS ORDERED: DIPHENHYDRAMINE 50 MG INJ IV (14:30)
[2018-06-13] MEDS ORDERED: ONDANSETRON INJ 16 MG, DEXAMETHASONE 4 MG/ML 10 MG in SOD CHLORIDE 0.9% 50 ML IV (14:30)
[2018-06-13] MEDS ORDERED: IFOSFAMIDE IV (15:00)
[2018-06-13] MEDS ORDERED: MESNA IV (15:00)
[2018-06-13] MEDS ORDERED: CARBOPLATIN IV (17:00)
[2018-06-15] MEDS ORDERED: METHOTREXATE IT (10:00)
[2018-06-15] MEDS ORDERED: SOD CHLORIDE 0.9% IT (10:00)
[2018-06-15] MEDS ORDERED: HYDROCORTISONE IT (10:00)
== END 2018-06-12 21:10 | disposition short-term general hospital (02) | DRG 847 ==
LOC: MS1 10:25
DX: Z51.11 Encounter for antineoplastic chemotherapy (principal); C83.30 Diffuse large B-cell lymphoma, unspecified site; E87.1 Hypo-osmolality and hyponatremia; I82.B12 Acute embolism and thrombosis of left subclavian vein; N40.0 Benign prostatic hyperplasia without lower urinary tract symptoms; E11.9 Type 2 diabetes mellitus without complications
CPT/HCPCS: 80048; 80053; 82962; 83615; 83735; 84100; 84560; 85025; 93971; J9310